=== PATIENT | female | born 1945 | race Asian ===

== ENCOUNTER 2019-12-21 17:53 | Emergency (ER) | payer MEDICAID ==
[~2019-12-21] VITALS: Ht 152.4 cm; Wt 54.5 kg
[2019-12-21] MEDS ORDERED: ATOR20TA86 PO (17:57)
[2019-12-21] MEDS ORDERED: NEBI5TAB2 PO (17:57)
[2019-12-21] MEDS ORDERED: TELM1TAB6 PO (17:57)
[2019-12-21 18:49] VITALS: BP 147/85
== END 2019-12-21 19:00 | disposition home or self-care (01) ==
LOC: EMS 17:54
DX: I10 Essential (primary) hypertension (principal); Z76.0 Encounter for issue of repeat prescription; E78.00 Pure hypercholesterolemia, unspecified; Z79.899 Other long term (current) drug therapy
CPT/HCPCS: Z7502

== ENCOUNTER 2020-04-03 09:44 | Emergency (ER) | payer MEDICAID, OTHER ==
[~2020-04-03] VITALS: Ht 152.4 cm; Wt 59.1 kg
[~2020-04-03 09:44] MED LIST: ATOR20TA86 PO; NEBI5TAB2 PO; TELM1TAB6 PO
[2020-04-03] MEDS ORDERED: TELMISARTAN 40 MG TABLET PO ONE (11:00)
[2020-04-03] MEDS ORDERED: HYDROCHLOROTHIAZIDE 25 MG TABLET PO ONE (11:00)
[2020-04-03 12:47] VITALS: BP 187/94
== END 2020-04-03 13:02 | disposition home or self-care (01) ==
LOC: EMS 09:48
DX: I10 Essential (primary) hypertension (principal); E78.00 Pure hypercholesterolemia, unspecified